=== PATIENT | female | born 1950 | race Caucasian/White ===

== ENCOUNTER 2020-08-01 08:16 | Outpatient (CLI) | payer OTHER | END 2020-08-01 08:18 | disposition home or self-care (01) | LOC: RX STUDY 08:16 | PROVIDERS: ATTEND Internal Medicine Gastroenterology | DX: K21.9 Gastro-esophageal reflux disease without esophagitis (principal); R53.1 Weakness; R13.19 Other dysphagia; K44.9 Diaphragmatic hernia without obstruction or gangrene ==